=== PATIENT | male | born 1965 | race Caucasian/White ===

== ENCOUNTER 2024-06-04 00:09 | Emergency (ER) | payer MEDICAID, SELFPAY ==
[2024-06-04] VITALS (8 sets, daily range): BP systolic 97–132; BP diastolic 65–89; PULSE 51–71; RESP 10–21; TEMP 36.7–36.9; O2SAT 95–98; BMI 21.1
--- NOTE | 2024-06-04 | ECG_ITS ---
Test Reason : OVERDOSE Blood Pressure : */* mmHG Vent. Rate : 66 BPM Atrial Rate : 66 BPM P-R Int : 166 ms QRS Dur : 104 ms QT Int : 376 ms P-R-T Axes : 68 -45 44 degrees QTcB Int : 394 ms Normal sinus rhythm Incomplete right bundle branch block Left anterior fascicular block Abnormal ECG No previous ECGs available Referred By: Celia Kumar Electronically Signed By: PETER WASHINGTON
--- NOTE | 2024-06-04 00:24 | MHC.EDTECH ---
Patient changed over into hospital green [place] and pants for safety for OD. Security searched items and placed into lock up. belongings list completed
--- NOTE | 2024-06-04 00:25 | MHC.EDTECH ---
[facility]
--- NOTE | 2024-06-04 00:40 | ED_ITS ---
HPI - Overdose General Chief Complaint: Overdose Stated Complaint: OD Time Seen by Provider: 06/04/24 00:22 Source: patient and EMS Mode of arrival: EMS Limitations: no limitations History of Present Illness ED Provider: Dr. Celia Kumar HPI Narrative: Patient comes to the emergency room complaining of accidental overdose. According to EMS, PD found the patient unresponsive on the street, gave him 8 mg of Narcan, patient had to be ventilated initially the patient woke up. Patient admits that he has been using drugs, heroin and wheat. Patient is adamant that he is not suicidal or homicidal, this was an accidental overdose. Related Data Allergies Allergy/AdvReac Type Severity Reaction Status Date / Time No Known Allergies Allergy Verified 06/04/24 00:23 Review of Systems 2 Review of Systems: Constitutional : No Weight loss, No Fever, No Chills, No Night Sweats, No Fatigue, No Malaise ENT/Mouth : No Hearing loss, No Ear Pain, No Nasal Congestion, No Sinus Pain, No Hoarseness, No sore throat, No Rhinorrhea, No Swallowing Difficulty Eyes: No Eye Pain, No Swelling, No Redness, No Foreign Body, No Discharge, No Vision Changes Cardiovascular : No Chest Pain, No SOB, No Dyspnea on Exertion, No Orthopnea, No Edema, No Palpitations Respiratory : No Cough, No Sputum, No Wheezing, No Smoke Exposure, No Dyspnea Gastrointestinal : No Nausea, No Vomiting, No Diarrhea, No Constipation, No abdominal Pain, No Hematochezia, No Melena Genitourinary : no irregular bleeding, No Dysuria, No Urinary Frequency, No Hematuria, No Urinary Incontinence, No Urgency, No Flank Pain, No Urinary Flow Changes, No Hesitancy Musculoskeletal : No joint pain, No Myalgias, No Joint Swelling Skin : No Skin Lesions, No rash Neuro : No Weakness, No Numbness, No Paresthesias, No Loss of Consciousness, No Dizziness, No Headache Psych : No Anxiety/Panic, No Depression, No SI/HI/AH/VH, Admits to polysubstance abuse, accidental overdose Heme/Lymph: No Bruising, No Bleeding,No Lymphadenopathy Endocrine : No Polyuria, No Polydipsia, No Temperature Intolerance PMFSH Past Medical History Medical History Overdose Polysubstance abuse Social History Social History Smoked in Last 30 Days: Yes Use of substances other than those prescribed or required for medical reasons: Yes Substance Use Type: Heroin and Marijuana Advance Directives: No Advance Directives Information Provided: Yes Physical Exam 2 Vital Signs: Vital Signs: Last Vital Signs Temp 98.4 F 06/04/24 05:50 Pulse 51 06/04/24 05:50 Resp 10 L 06/04/24 05:50 BP 97/67 06/04/24 05:50 Pulse Ox 96 06/04/24 05:50 O2 Del Method Room Air 06/04/24 05:50 BMI result Body Mass Index 21.1 Const: Other: Appearance: Alert. Oriented X3. No acute distress. Eyes: Pupils equal, round and reactive to light. ENT: Pharynx normal. Neck: Normal inspection. Neck supple. No lymph nodes noted. No crepitus CVS: Normal heart rate and rhythm. Pulses normal. Normal S1 and S2 Respiratory: No respiratory distress. Breath sounds normal. No Wheezing. No rales Abdomen: Soft and nontender. No rigidity. No distention. Skin: Skin warm and dry. Normal skin color. Normal skin turgor. no swelling or deformities Extremities: No lower extremity edema. No Lacerations. No Rash Neuro: Oriented X 3. No motor deficit. No sensory deficit. Moving all extremities. No slurred speech. CN 2 through 12 grossly intact Psych: calm, cooperative, normal affect Course Course Course Narrative: patient is adamant that he is not suicidal or homicidal. This was an accidental overdose all of patient's labs pending patient decline care/sude eval vitals stable, oxygen saturation 98% on room air Physician observation started at 00:30 Medications Administered Discontinued Medications Generic Name Dose Route Start Last Admin Trade Name Austinq PRN Reason Stop Dose Admin Acetaminophen 975 mg 06/04/24 02:40 06/04/24 02:45 Acetaminophen 325 Mg Tablet PO 06/04/24 02:41 975 mg ONCE ONE Administration Medical Decision Making Medical Decision Making [facility] Narrative: my interpretation of labs: Patient's hematology and chemistry within normal limits. Urine toxicology positive for opiates, fentanyl, cocaine and marijuana patient states that he has no interest in detox or any programs such as Suboxone/ methadone Differential Diagnosis Differential Diagnoses: The differential diagnosis associated with the presentation includes ( polysubstance abuse, accidental overdose, depression, anxiety) Admission/Observation Consideration of admission/observation: Escalation of care including admission/observation considered ( patient is under physician observation, waiting to become more awake) Lab Data 06/04/24 00:45 06/04/24 00:45 Labs: Lab Results 06/04/24 06/04/24 Range/Units 00:45 02:47 WBC 6.1 (4.8-10.8) X10*3/uL RBC 4.25 L (4.60-5.80) X10*6/uL Hgb 13.1 L (14.0-18.0) g/dl Hct 37.5 L (42.0-52.0) % MCV 88.2 (80.0-98.0) fL MCH 30.8 (27.0-33.0) pg MCHC 34.9 (31.0-36.0) g/dl RDW 12.1 (11.0-16.0) % Plt Count 161 (160-400) X10*3/uL MPV 8.2 L (9.4-12.4) fL Immature Gran % (Auto) 0.3 (0.0-0.4) % Neut % (Auto) 56.8 (45-73) % Lymph % (Auto) 27.2 (20-40) % [place] % (Auto) 6.7 (2-11) % Eos % (Auto) 8.5 H (0-4) % Baso % (Auto) 0.5 (0-2) % Lymph # (Auto) 1.7 (1.2-4.9) X10*3/uL [place] # (Auto) 0.4 (0.1-1.2) X10*3/uL Eos # (Auto) 0.5 H (0.0-0.4) X10*3/uL Baso # (Auto) 0.0 (0.0-0.2) X10*3/uL Abs Immat Gran (auto) 0.02 (0.00-0.03) X10*3/uL Absolute Neuts (auto) 3.5 (2.0-8.3) x10*3/uL Absolute Nucleated RBC 0.000 (0.0-0.012) X10*3/uL Nucleated RBC % (auto) 0.0 (0.0-0.2) /100WBC Sodium 140 (135-145) mmol/L Potassium 3.9 (3.3-5.1) mmol/L Chloride 104 (96-108) mmol/L Carbon Dioxide 28 (22-29) mmol/L Anion Gap 12 (12-20) BUN 19 H (9-16) mg/dL Creatinine 0.91 (0.5-1.4) mg/dL Estim Creat Clear Calc 75.7 Estimated GFR > 60 Random Glucose 115 (60-115) mg/dL Calcium 9.2 (8.4-10.2) mg/dL Total Bilirubin 0.5 (0.0-1.0) mg/dL AST 33 (5-37) U/L ALT 20 (0-40) U/L Alkaline Phosphatase 61 (39-117) U/L Total Protein 7.0 (6.5-8.0) g/dL Albumin 4.0 (3.5-5.0) g/dL Urine Opiates Screen POSITIVE H (Not Detect) Ur Buprenorphine Scrn Not Detected (Not Detect) ng/mL Ur Oxycodone Screen Not Detected (Not Detect) ng/mL Urine Methadone Screen Not Detected (Not Detect) ng/mL Urine Fentanyl Screen POSITIVE H (Not Detect) Ur Barbiturates Screen Not Detected (Not Detect) Ur Phencyclidine Scrn Not Detected (Not Detect) Ur Amphetamines Screen Not Detected (Not Detect) U Benzodiazepines Scrn Not Detected (Not Detect) Urine Cocaine Screen POSITIVE H (Not Detect) U Marijuana (THC) Screen POSITIVE H (Not Detect) Ethyl Alcohol < 10 mg/dL Critical Care Time Critical Care Time Critical Care Time: Yes Total Critical Care Time: 45 Attestation: I have personally provided critical care time. Time includes review of lab data, radiology results, discussion with consultants, and monitoring for potential decompensation. Intervention performed as documented. Discharge Plan Discharge Clinical Impression: Drug overdose Patient Disposition: Home, Self-Care Instructions: Adult Overdose (ED) Additional Instructions: Overdose You were seen in our Emergency Department for an overdose today. You received narcan in order to reverse the effects of overdose. Narcan only lasts about 45 min to 1 hour in the system. You may have been given narcan to take home with you today, please keep it near you if you are going to use again, so others can use it if needed.? The number one risk for fatal overdose is using alone? [facility] [employer] is a / hotline where you can be on the phone with someone while you use, and they can call for help if they suspect an overdose: [phone] Things to look out for when you leave include severe vomiting or diarrhea, headaches, muscle cramps, fever, coughing, chest pain, or if you feel so short of breath you cannot walk to the bathroom. Please seek care and return any time for worsening symptoms.? You may have been provided with safer injection?items, please take time to take care of YOU and your health. Use new supplies whenever possible to lessen the chances of infections and other illnesses.? If you need more supplies, please go [facility],? [address] [place] [address] OR you can call or text to coordinate delivery of safer supplies. If you decide you want to stop or cut down on how much you?re using, please call the numbers on the list provided to you or you can come to our outpatient Addiction Treatment office [facility] [place] (M-F 9am-5p) [address] [place] [address], [address] [place], [place]. [phone] Print Language: Kazakh
[2024-06-04 00:49] LABS: MANUAL DIFF FLAG NO
[2024-06-04 00:50] LABS: Basophils Percent Auto 0.5 % (0-2); Eosinophils Absolute Auto 0.5 X10*3/uL (0.0-0.4); Eosinophils Percent Auto 8.5 % (0-4); Hematocrit 37.5 % (42.0-52.0); Hemoglobin 13.1 g/dl (14.0-18.0); Imm Gran Abs Auto 0.02 X10*3/uL (0.00-0.03); Imm Gran Pct Auto 0.3 % (0.0-0.4); Lymphocytes Absolute Auto 1.7 X10*3/uL (1.2-4.9); Lymphocytes Percent Auto 27.2 % (20-40); Mean Corpuscular HGB Conc 34.9 g/dl (31.0-36.0); Mean Corpuscular Hemoglobin 30.8 pg (27.0-33.0); Mean Corpuscular Volume 88.2 fL (80.0-98.0); Mean Platelet Volume 8.2 fL (9.4-12.4); Monocytes Absolute Auto 0.4 X10*3/uL (0.1-1.2); Monocytes Percent Auto 6.7 % (2-11); Neutrophils Absolute Auto 3.5 x10*3/uL (2.0-8.3); Neutrophils Percent Auto 56.8 % (45-73); Platelet Count 161 X10*3/uL (160-400); Red Blood Count 4.25 X10*6/uL (4.60-5.80); Red Cell Distribution Width 12.1 % (11.0-16.0); White Blood Count 6.1 X10*3/uL (4.8-10.8)
[2024-06-04 01:13] LABS: Alkaline Phosphatase 61 U/L (39-117)
[2024-06-04 01:14] LABS: Alanine Aminotransferase 20 U/L (0-40); Anion Gap 12 (12-20); Aspartate Amino Transferase 33 U/L (5-37); Bilirubin Total 0.5 mg/dL (0.0-1.0); Blood Urea Nitrogen 19 mg/dL (9-16); Calcium 9.2 mg/dL (8.4-10.2); Carbon Dioxide 28 mmol/L (22-29); Chloride 104 mmol/L (96-108); Creatinine Clr Calc Pharmacy 75.7; Estimated Glomerular Filt Rate > 60; Ethanol < 10 mg/dL; Glucose Random 115 mg/dL (60-115); Potassium 3.9 mmol/L (3.3-5.1); Sodium 140 mmol/L (135-145)
[2024-06-04] MEDS: Acetaminophen 325 MG TABLET 975 MG PO (02:45)
--- OUTSIDE RECORDS SUMMARY | 2024-06-04 02:46 | XMS_ITS | Clinical Summary ---
Author Organization [facility] Address [address] [place] [address] Care Team Providers Care Sales/Marketing Name Role Phone Tom Gomez Primary Care Provider [phone] Allergies No known active allergies Medications Medication Sig Dispensed Refills Start Date End Date Status terbinafine (LamISIL) 1 % cream Apply topically 2 (two) times a day. Apply twice a day for one to four weeks 30 g 1 09/23/2018 Active naproxen (NAPROSYN) 500 MG tablet Take 1 tablet (500 mg total) by mouth 2 (two) times a day as needed for mild pain (pain). Take with food 20 tablet 11/12/2019 Active methocarbamol (ROBAXIN) 500 MG tablet Take 2 tablets (1,000 mg total) by mouth 4 times daily (every 6 hours) as needed for muscle spasms. 20 tablet 11/12/2019 Active Social History Tobacco Use Types Packs/Day Years Used Date Smoking Tobacco: Every Day Smokeless Tobacco: Never Alcohol Use Standard Drinks/Week Comments No 0 (1 standard drink = 0.6 oz pur e alcohol) Sex and Gender Information Value Date Recorded Sex Assigned at Not on file Gender Identity Not on file Sexual Orientation Not on file Last Filed Vital Signs Vital Sign Reading Time Taken Comments Blood Pressure 110/72 05/24/2021 8:11 PM EST Pulse 70 05/24/2021 8:11 PM EST Temperature 36.2 ??C (97.1 ??F) 05/24/2021 8:11 PM ES T Respiratory Rate 16 05/24/2021 8:11 PM EST Oxygen Saturation 96% 05/24/2021 8:11 PM EST Inhaled Oxygen Concentration - - Weight - - Height - - Body Mass Index - - Plan of Treatment Health Maintenance Due Date Last Done Comments Hepatitis C Virus Screening 1964 HIV Screening 1977 DTaP/Tdap/Td Vaccines (1 - Tdap) 10/06/1983 Hepatitis B Vaccines (1 of 3 - 19+ 3-dose series) 10/06/1983 Colonoscopy 2009 Pneumococcal Vaccines 50+ (1 of 1 - PCV) 2014 Zoster (Shingles) Vaccine (1 of 2) 2014 Influenza Vaccine 10/23/2023 COVID-19 Vaccine (3 - season) 2023, 08/29/2020 Care Teams Sales/Marketing Relationship Specialty Start [place] [address] PCP - General Adult Health - PA/APNP/BUDGET COUNSELOR/MECHANICAL MANAGER 05/10/20
--- OUTSIDE RECORDS SUMMARY | 2024-06-04 02:46 | XMS_ITS | Clinical Summary ---
Author Organization [employer] Address [address] [facility] [address] [place] [address] Care Team Providers Care Recreation Facilities Supervisor Name Role Phone Unavailable Primary Care Provider Unavailabl e Encounters Date Type Department Care Team Description 04/21/[address] [address] Suraj Miles MD New pt appt 04/20/[address] [address] Suraj Miles MD telephone call from Last 3 Months Social History Tobacco Use Types Packs/Day Years Used Date Smoking Tobacco: Never Assessed Sex and Gender Information Value Date Recorded Sex Assigned at Male 01/21/2022 10:20 AM EDT Legal Sex Male 10:20 AM EDT Gender Identity Male 09/16/2022 11:11 AM EDT Sexual Orientation Straight 01/21/2022 10 :20 AM EDT Plan of Treatment Upcoming Encounters Date Type Department Care Team (Late st Contact Info) Description 07/05/2024 2:00 PM EDT Office Visit [address] [address] Name, MD Pedro [address] [place] [id number] Health Maintenance Due Date Last Done Comments CT Colonography 1964 Colonoscopy 1964 Colorectal Cancer Screening 1964 Depression Screening 1964 FIT DNA/Cologuard 1964 FIT 1964 FOBT 1964 HIV Screening 1964 Lipid Panel 1964 SDOH Screening 1964 Sigmoidoscopy 1964 Alcohol/Substance Use Screening 1976 Tobacco Screening 1976 Hepatitis C Screening 1982 DTaP/Tdap/Td Vaccines (1 - Tdap) 10/06/1983 Hepatitis B Vaccines (1 of 3 - 19+ 3-dose series) 10/06/1983 Pneumococcal Vaccine: 50+ Ye ars (1 of 1 - PCV) 2014 Zoster Vaccines (1 of 2) 2014 COVID-19 Vaccine ( - 2023-2 5 season) 2023 Influenza Vaccine (#1) 2023 RSV Patients and Pa tients Aged 60 years or older (1 - 1-dose 75+ series) 10/06/2039 HIB Vaccines Aged Out No longer eligi ble based on patient's age to complete this topic HPV Vaccines Aged Out No longer eligi ble based on patient's age to complete this topic Hepatitis A Vaccines Aged Out No long er eligible based on patient's age to complete this topic IPV Vaccines Aged Out No longer eligi ble based on patient's age to complete this topic Meningococcal Vaccine Aged Out No mya montrell eligible based on patient's age to complete this topic RSV under 20 months Aged Out No longe r eligible based on patient's age to complete this topic Rotavirus Vaccines Aged Out No longer eligible based on patient's age to complete this topic Insurance [facility] C3
[2024-06-04 03:09] LABS: Amphetamine Screen Urine Not Detected (Not Detect); Barbiturates, Urine Not Detected (Not Detect); Benzodiazepines Screen Urine Not Detected (Not Detect); Buprenorphine Scr Not Detected (Not Detect); Cannabinoid Screen Urine POSITIVE (Not Detect); Cocaine Screen Urine POSITIVE (Not Detect); Fentanyl, urine POSITIVE (Not Detect); Methadone Screen, Urine Not Detected (Not Detect); Opiate Screen Urine POSITIVE (Not Detect); Oxycodone Screen Urine Not Detected (Not Detect); Phencyclidine Screen Urine Not Detected (Not Detect)
--- NOTE | 2024-06-04 07:00 | PC.NURSE ---
Report taken from Talia Mitchell RN
--- NOTE | 2024-06-04 08:28 | PC.NURSE ---
Pt. woke up, came out of room and started yelling that he needs to leave immediately for a job interview. Keyur Ojeda MD notified to d/c pt.
--- NOTE | 2024-06-04 08:28 | PC.NURSE ---
[facility]
--- NOTE | 2024-06-04 08:36 | PC.NURSE ---
Pt. refusing d/c vitals
== END 2024-06-04 08:37 | disposition home or self-care (01) ==
PROVIDERS: Emergency Provider Emergency Medicine
DX: T40.2X1A Poisoning by other opioids, accidental (unintentional), initial encounter (principal); R40.4 Transient alteration of awareness; Y92.9 Unspecified place or not applicable; F14.90 Cocaine use, unspecified, uncomplicated; F12.90 Cannabis use, unspecified, uncomplicated; I45.10 Unspecified right bundle-branch block; Z51.81 Encounter for therapeutic drug level monitoring; Z79.899 Other long term (current) drug therapy
CPT/HCPCS: 36415; 80053; 80307; 85025; 93005; 99285

== ENCOUNTER → 2024-06-04 00:35 | Outpatient (BNV) | payer MEDICAID, SELFPAY | PROVIDERS: Emergency Provider Emergency Medicine; Visit Provider Internal Medicine | DX: I45.2 Bifascicular block (principal) | CPT/HCPCS: 93010 ==

== ENCOUNTER 2024-07-06 11:30 | Outpatient (REF) | payer MEDICAID, SELFPAY ==
[2024-07-06 13:27] LABS: MANUAL DIFF FLAG NO
[2024-07-06 13:40] LABS: Basophils Percent Auto 0.3 % (0-2); Eosinophils Absolute Auto 0.3 X10*3/uL (0.0-0.4); Eosinophils Percent Auto 5.7 % (0-4); Hematocrit 40.5 % (42.0-52.0); Hemoglobin 14.2 g/dl (14.0-18.0); Imm Gran Abs Auto 0.02 X10*3/uL (0.00-0.03); Imm Gran Pct Auto 0.3 % (0.0-0.4); Lymphocytes Absolute Auto 1.2 X10*3/uL (1.2-4.9); Mean Corpuscular HGB Conc 35.1 g/dl (31.0-36.0); Mean Corpuscular Hemoglobin 30.9 pg (27.0-33.0); Mean Platelet Volume 9.2 fL (9.4-12.4); Monocytes Absolute Auto 0.4 X10*3/uL (0.1-1.2); Monocytes Percent Auto 7.5 % (2-11); Neutrophils Absolute Auto 3.8 x10*3/uL (2.0-8.3); Neutrophils Percent Auto 65.2 % (45-73); Platelet Count 181 X10*3/uL (160-400); Red Cell Distribution Width 12.1 % (11.0-16.0); White Blood Count 5.8 X10*3/uL (4.8-10.8)
--- OUTSIDE RECORDS SUMMARY | 2024-07-06 14:18 | XMS_ITS | Clinical Summary ---
Author Organization [facility] Address [address] [place] [address] Care Team Providers Care Entertainment Manager Name Role Phone Tom Gomez Primary Care Provider [phone] Allergies No known active allergies Medications Medication [...] (3 - season) 2023, 08/29/2020 Care Teams Entertainment Manager Relationship Specialty Start Date [place] [address] PCP - General Adult Health - PA/APNP/STEEL POST INSTALLER/NURSES EDUCATOR 05/10/20
[2024-07-06 14:25] LABS: Alanine Aminotransferase 30 U/L (0-40); Albumin Level 4.2 g/dL (3.5-5.0); Anion Gap 8 (12-20); Aspartate Amino Transferase 30 U/L (5-37); Bilirubin Total 0.4 mg/dL (0.0-1.0); Blood Urea Nitrogen 13 mg/dL (9-16); Calcium 9.4 mg/dL (8.4-10.2); Carbon Dioxide 25 mmol/L (22-29); Chloride 109 mmol/L (96-108); Estimated Glomerular Filt Rate > 60; Glucose Random 102 mg/dL (60-115); Potassium 4.1 mmol/L (3.3-5.1); Sodium 138 mmol/L (135-145)
[2024-07-06 14:48] LABS: TSH reflex Free T4 1.73 uIU/mL (0.32-4.0)
[2024-07-06 15:25] LABS: CT PCR NOT DETECTED (Not Detect.); NG PCR NOT DETECTED (Not Detect.)
[2024-07-06 17:32] LABS: Alkaline Phosphatase 67 U/L (39-117)
[2024-07-07 08:13] LABS: HBS Num1 10.85 mIU/mL (0-7.99); HBsAGNum1 0.44 S/CO (0.00-0.99); HIV AB/AG Nonreactive (Nonreactive); HIV Num 1 0.06 S/CO (0.00-0.99); Hepatitis B Surface Antigen Negative (Negative)
[2024-07-07 09:32] LABS: HBS Num2 10.49 mIU/mL (0-7.99); HBS Num3 10.35 mIU/mL (0-7.99); ~Hepatitis B Surface Antibody GRAYZONE (Nonreactive)
[2024-07-07 09:54] LABS: RPR Rapid Plasma Reagin NON-REACTIVE (NON-REACTIVE)
[2024-07-08 08:54] LABS: Hepatitis A Antibody IgG REACTIVE (Nonreactive); ~Hepatitis A Antibody IgG 12.31 S/CO (0.00-0.99)
[2024-07-08 15:48] LABS: HCV Log PCR <1.18 NOT DETECTED Log IU/mL (NOT DETECTED); HepC Viral Load <15 NOT DETECTED IU/mL (NOT DETECTED)
== END 2024-07-06 11:31 | disposition home or self-care (01) ==
LOC: HO.HHCL 11:30
PROVIDERS: Visit Provider Internal Medicine Geriatric Medicine
DX: F19.10 Other psychoactive substance abuse, uncomplicated (principal); F41.8 Other specified anxiety disorders
CPT/HCPCS: 80053; 84443; 85025; 86592; 86706; 86708; 87340; 87389; 87491; 87522; 87591

== ENCOUNTER 2024-09-03 13:14 | Emergency (ER) | payer MEDICAID, SELFPAY ==
[2024-09-03 13:18] VITALS: BP 122/74; PULSE 97; O2SAT 96
[2024-09-03 13:25] VITALS: BP 93/57; PULSE 69; RESP 16; TEMP 36.6; O2SAT 96; BMI 21.1
--- NOTE | 2024-09-03 13:42 | ED_ITS ---
HPI - Overdose General Chief Complaint: Overdose Stated Complaint: PER EMS OD, NARCAN GIVEN Time Seen by Provider: 09/03/24 13:40 Source: patient and EMS Mode of arrival: EMS Limitations: no limitations History of Present Illness ED Provider: Juancarlos Greenfield PA-C HPI Narrative: 58-year-old male presents to the ER via EMS for evaluation of an accidental drug overdose. He reports using 1 bag of intranasal heroin earlier today. He became unconscious and was given Narcan by a bystander. He denies any falls or injuries. He states he does not use heroin daily, that he is not addicted to it, and that ?his body does not crave it. He states he has the paperwork at home for detox but does not think he needs it. He denies any shortness of breath or chest pain. He states he feels fine and wants to go to work. complaint: accidental overdose Onset (ago): minute(s) Context: Accidental Overdose: wanted to get high Treatments Prior to Arrival: narcan Related Data Allergies Allergy/AdvReac Type Severity Reaction Status Date / Time No Known Allergies Allergy Verified 09/03/24 13:29 Review of Systems Review of Systems: Yes all other systems are reviewed and are negative PMFSH Past Medical History Medical History Overdose Polysubstance abuse Social History Social History Substance Use Type: Heroin and Marijuana Advance Directives: No Advance Directives Information Provided: Yes Physical Exam Vital Signs: Vital Signs: Last Vital Signs Temp 97.9 F 09/03/24 14:23 Pulse 75 09/03/24 14:23 Resp 16 09/03/24 14:23 BP 100/61 09/03/24 14:23 Pulse Ox 97 09/03/24 14:23 O2 Del Method Room Air 09/03/24 14:23 BMI result Body Mass Index 21.1 Appearance: Alert. Oriented X3. No acute distress. Head: normocephalic, atraumatic. Eyes: Pupils equal, round and reactive to light. ENT: Normal external inspection Neck: Normal inspection. CVS: Normal heart rate and rhythm. Pulses normal. Respiratory: No respiratory distress. Breath sounds normal. Skin: Skin warm and dry. Normal skin color. Normal skin turgor. No rashes. Extremities: No lower extremity edema. No joint swelling. No track vazquez on the upper extremities Neuro/psych: Oriented X 3. No motor deficit. No sensory deficit. CN II-XII intact. Normal speech and cognition. Steady gait and appropriate Medications Administered Discontinued Medications Generic Name Dose Route Start Last Admin Trade Name Millicent PRN Reason Stop Dose Admin Naloxone HCl 8 mg 09/03/24 13:54 09/03/24 14:16 Naloxone Hcl Nasal Take Home 4 Mg [place] NOSTRILALT 09/03/24 13:55 8 mg ONCE ONE Administration Medical Decision Making Medical Decision Making MDM Narrative: 58-year-old male with history of intermittent drug use presenting to the ER after he was using intranasal heroin outside, accidentally overdose and was given intranasal Narcan by a bystander. He reports 1 history of overdose in the past. He does not use daily. He denies dependence. On arrival to the ER he is calm, cooperative, no physical complaints. He is ambulating around the ER asking if he can leave so that he can go to work. He was monitored in the ER for almost 1 hour. He was counseled that he should stay longer for ongoing monitoring but he declined. He was given Narcan to go. He declined need for detox. Comfortable discharge home Differential Diagnosis Differential Diagnoses: The differential diagnosis associated with the presentation includes Intentional overdose, accidental overdose, polypharmacy Independent Historian Clinical information obtained from an independent historian. History obtained from or confirmed by: EMS External Record Review External record reviewed: Prior outpatient labs Prescription Management I considered prescription management with: Other (narcan) Chronic Conditions Patient?s care impacted by: Other (hx opiate use disorder) Critical Care Time Critical Care Time Critical Care Time: No Discharge Plan Discharge Clinical Impression: Drug overdose Qualifiers: Encounter type: initial encounter Injury intent: accidental or unintentional Qualified Code(s): T50.901A - Poisoning by unspecified drugs, medicaments and biological substances, accidental (unintentional), initial encounter Patient Disposition: Home, Self-Care Instructions: Adult Overdose (ED) Additional Instructions: Overdose You were seen in our Emergency Department for an overdose today. You received narcan in order to reverse the effects of overdose. Narcan only lasts about 45 min to 1 hour in the system. You may have been given narcan to take home with you today, please keep it near you if you are going to use again, so others can use it if needed.? The number one risk for fatal overdose is using alone? [facility] is a 14/10 hotline where you can be on the phone with someone while you use, and they can call for help if they suspect an overdose: [phone] Things to look out for when you leave include severe vomiting or diarrhea, headaches, muscle cramps, fever, coughing, chest pain, or if you feel so short of breath you cannot walk to the bathroom. Please seek care and return any time for worsening symptoms.? You may have been provided with safer injection?items, please take time to take care of YOU and your health. Use new supplies whenever possible to lessen the chances of infections and other illnesses.? If you need more supplies, please go [facility],? [address] [place] [address] [place] you can call or text to coordinate delivery of safer supplies. If you decide you want to stop or cut down on how much you?re using, please call the numbers on the list provided to you or you can come to our outpatient Addiction Treatment office [facility] (M-F 9am-5p) [address] [place] [address], [address] [place], [place]. [phone] Referrals: [facility] [Primary Care Provider] - Interventions: ED Discharge Assessment Last Done: 09/03/24 14:23 Discharge Date/Time: 09/03/24 14:25 Print Language: Tristanian
--- OUTSIDE RECORDS SUMMARY | 2024-09-03 13:52 | XMS_ITS | Clinical Summary ---
Author Organization [employer] Address [address] [facility] [address] [place] [address] Care Team Providers Care Blow Molding Machine Tender Name Role Phone Name, Pedro NORRIS Primary Care Provider [phone] Allergies No known active allergies Medications * This document contains information received from the source organization and may not represent a complete record from that organization. naloxone (Narcan) 4 mg/0.1 mL nasal spray Administer 1 spray (4 mg) into affected nostril(s) if needed for opioid reversal. May repeat every 2-3 minutes if needed, alternating nostrils, until medical assistance becomes available. 2 each 5 07/06/19 Active Active Problems Problem Noted Date Diagnosed Date Moderate major depression 07/16/2024 Polysubstance abuse 07/16/2024 Encounters * This document contains information received from the source organization and may not represent a complete record from that organization. Date Type Department Care Team Description 08/27/2024 Telephone [facility] [address] [place] [phone] Beverly Masters MA october recalls 07/28/2024 9:00 AM EDT Office Visit [facility] [address] [place] [phone] Ruel Esquivel MD Cocaine use disorder (CMS/HCC) (Primary Dx) 07/28/2024 Travel 07/27/2024 Patient Outreach [facility] [address] [place] [address] José Miguel Jules [facility] Supports 07/26/2024 Patient Outreach [facility] [address] [place] [address] [phone] José Miguel Jules [facility] 07/22/2024 Patient Outreach [facility] [address] [place] [address] José Miguel Jules [facility] Supports 07/20/2024 Patient Outreach [facility] [address] [place] [address] Umair Nelson Recovery Supports 07/19/2024 Patient Outreach [address] [address] Umair Nelson Recovery Supports 07/16/2024 Telephone [facility] [address] [place] [address] Pedro Proctor MD Results 07/08/2024 Telephone [facility] [address] [place] [phone] Simonnaveen Polly, OD 07/05/2024 2:00 PM EDT Office Visit [address] [address] Pedro Proctor MD Polysubstance abuse (CMS/HCC) (Primary Dx); Tobacco use disorder; Depression with anxiety; Screening examination for STI; Screening for colon cancer; Blurred vision, bilateral; Housing instability 07/05/2024 Patient Outreach [address] [address] Pedro Proctor MD Care Coordination (CHW outreach for SDOH housing search-referral completed ) 07/05/2024 Travel 07/01/[address] [address] Ayush Hood MA chartprep 06/28/2024 Patient Outreach [facility] [address] [place] [address] Pedro Proctor MD 06/28/2024 Patient Outreach [facility] [address] [place], [place] [phone] Pedro Proctor MD Pre-visit Planning (SDOH negative, Tobacco screening negative) 06/23/2024 Population Health Risk Score [facility] () Department [address] [place] [phone] Provider, Population Health Generic from Last 3 Months Immunizations Immunization Administration Dates Next Due Tdap 07/05/2024 Family History Medical History Relation Name Comments Diabetes Mother Relation Name Status Comments Mother Social History Tobacco Use Types Packs/Day Years Used Date Smoking Tobacco: Every Day Cigarettes Smokeless Tobacco: Never Alcohol Use Standard Drinks/Week Comments Defer 0 (1 standard drink = 0.6 oz pur e alcohol) occionally Alcohol Answer Date Recorded How often do you have a drink containing alcohol ? 3 07/16/2024 How many drinks containing a lcohol do you have on a typical day when you are drinking? 1 07/16/2024 How often do you have six or more drinks on one occasion? 1 07/16/2024 Depression Answer Date Recorded Patient Health Questionnaire-9 Score 13 07/05/2024 Patient Health Questionnaire-9 Score 13 07/05/2024 Last PHQ-9: Questionnaire Data Not on file 0 07/05/2024 Housing Stability Answer Date Recorded What is your housing situation today? I do not have housing (Staying with others, in a hotel, in a fci, living outside on the street, on a beach, in a car, or in a park 07/05/[address] you li ve. Do you have problems with any of the following? None of the above 07/05/2024 Food Insecurity Answer Date Recorded Within the past 12 months, y ou worried that your food would run out before you got money to buy more: Never True 06/28/2024 Within the past 12 months,th e food you bought just didn't last and you didn't have enough money to get more: Never True 09/2024 Transportation Answer Date Recorded In the past 12 months, has l ack of transportation kept you from medical appts, meetings, work or from getting things needed for daily living? No 06/28/2024 Utilities Answer Date Recorded In the past 12 months, has t he electric, gas, oil or water company threatened to shut off services in your home? No 06/28/2024 Depression Answer Date Recorded Patient Health Questionnaire-2 Score 4 07/05/2024 Internet Access Answer Date Recorded Internet Access Q1 Yes 06/28/2024 Internet Access Q2 Not on file 06/28/2024 Sex and Gender Information Value Date Recorded Sex Assigned at Male 01/21/2022 10:20 AM EDT Legal Sex Male 10:20 AM EDT Gender Identity Male 09/16/2022 11:11 AM EDT Sexual Orientation Straight 01/21/2022 10 :20 AM EDT Last Filed Vital Signs Vital Sign Reading Time Taken Comments Blood Pressure 119/82 07/05/2024 2:22 PM EDT Pulse 69 07/05/2024 2:22 PM EDT Temperature 37.4 ??C (99.4 ??F) 07/05/2024 2:22 PM ED T Respiratory Rate 18 07/05/2024 2:22 PM EDT Oxygen Saturation 98% 07/05/2024 2:22 PM EDT Inhaled Oxygen Concentration - - Weight 63.4 kg (139 lb 12.8 oz) 07/05/2024 2:22 PM EDT Height 172.7 cm (5' 8 ) 07/05/2024 2:22 PM EDT Body Mass Index 21.26 07/05/2024 2:22 PM EDT Plan of Treatment Upcoming Encounters Date Type Department Care Team (Late st Contact Info) Description 10/25/2024 1:00 PM EDT Office Visit [facility] [address] [place] [address] Tarka, Polly, OD [address] [place] [address] 11/30/2024 1:00 PM EDT Office Visit [facility] [address] [place] [address] Name, MD Pedro [address] [place] [address] Health Maintenance Due Date Last Done Comments CT Colonography 1964 Colonoscopy 1964 Colorectal Cancer Screening 1964 FIT DNA/Cologuard 1964 FIT 1964 FOBT 1964 Lipid Panel 1964 Sigmoidoscopy 1964 Disability Screening 1964 Hepatitis B Vaccines (1 of 3 - 19+ 3-dose series) 10/06/1983 07/10/2010, 03/15/2010, 06/05/2009 Pneumococcal Vaccine: 50+ Years (2 of 2 - PCV) 12/25/2011 12/24/2010 Zoster Vaccines (1 of 2) 2014 COVID-19 Vaccine ( season) 2023 Influenza Vaccine (Season Ended) 2024 04/28/2018, 02/04/2017, 03/04/2016, Additional history exists Depression Monitoring 01/04/2025 07/05/2024, 025 SDOH Screening 07/05/2025 07/05/2024 Tobacco Screening 07/05/2025 07/05/2024 Alcohol/Substance Use Screening 07/16/2025 07/16/2024 DTaP/Tdap/Td Vaccines (3 - Td or Tdap) 07/05/2034 07/05/2024, 07/10/2010 RSV Patients and Patients Aged 60 years or older (1 - 1-dose 75+ series) 10/06/2039 HIV Screening Completed 07/06/2024 Hepatitis C Screening Completed 07/06/2024 HIB Vaccines Aged Out No longer eligi [...] patient's age to complete this topic Meningococcal B Vaccine Aged Out No l onger eligible based on patient's age to complete this topic Meningococcal Vaccine Aged Out No mya montrell eligible based on patient's age to complete this topic RSV under 20 months Aged Out No longe r eligible based on patient's age to complete this topic Rotavirus Vaccines Aged Out No longer eligible based on patient's age to complete this topic Procedures Procedure Name Priority Date/Time Associated Diagnosis Comments RPR (MONITOR) W/REFL TITER Routine 07/06/2024 11:33 AM EDT Polysubstance abuse (CMS/HCC) HEPATITIS A ANTIBODY, TOTAL Routine 07/06/2024 11:33 AM EDT Polysubstance abuse (CMS/HCC) HEPATITIS B SURFACE ANTIBODY, QUALITATIVE Routine 07/06/2024 11:33 AM EDT Polysubstance abuse (CMS/HCC) HEPATITIS B SURFACE ANTIGEN, EIA Routine 07/06/2024 11:33 AM EDT Polysubstance abuse (CMS/HCC) HEPATITIS C VIRAL RNA, QUANTITATIVE, REAL-TIME PCR Routine 07/06/2024 11:33 AM EDT Polysubstance abuse (CMS/HCC) HIV 1/2 ANTIGEN/ANTIBODY, FOURTH GENERATION W/RFL Routine 07/06/2024 11:33 AM EDT Polysubstance abuse (CMS/HCC) TSH W/REFLEX TO FT4 Routine 07/06/2024 1 1:33 AM EDT Depression with anxiety COMPREHENSIVE METABOLIC PANEL Routine 07/06/2024 11:33 AM EDT Polysubstance abuse (CMS/HCC) CBC WITH AUTO DIFFERENTIAL Routine 07/06/2024 11:33 AM EDT Polysubstance abuse (CMS/HCC) CHLAMYDIA/N. GONORRHOEAE RNA, TMA, UROGENITAL Routine 07/06/2024 11:33 AM EDT Polysubstance abuse (CMS/HCC) from Last 3 Months Results * TSH W/Reflex to FT4 (07/06/2024 11:33 AM EDT) TSH reflex Free T4 1.73 0.32 - 4.0 uIU/mL [facility] Blood Venous blood specimen / Unknown 07/06/2024 11:33 AM EDT 07/06/2024 1:20 PM EDT us Pedro Proctor MD LAB BLOOD ORDERABLES Final Resul t [facility] [address] [place] [phone] [phone] * Hepatitis C Viral RNA, Quantitative, Real-Time PCR (07/06/2024 11:33 AM EDT) [facility] Hepatitis C Viral Load <15 NOT DETECTED NOT DETECTED IU/mL [facility] HCV Log PCR <1.18 NOT DETECTED NOT DETECTED Log IU/mL [facility] Comment:For additional infor richard, please refer [email or web address]/[email or web address](This link is being provided for informational/educational purposes only.)THIS TEST WAS PERFORMED AT:[facility] [place] [phone] WAHL MD Blood Venous blood specimen / Unknown 07/06/2024 11:33 AM EDT 07/06/2024 1:20 PM EDT us Pedro Name LAB BLOOD ORDERABLES Final Resul t [facility] [address] [place] [phone] * (ABNORMAL) CBC auto differential (07/06/2024 11:33 AM EDT) [facility] White Blood Count 5.8 4.8 - 10.8 X10*3/uL [facility] Red Blood Count 4.60 4.60 - 5.80 X10*6/uL [facility] Hemoglobin 14.2 14.0 - 18.0 g/dl [facility] Hematocrit 40.5(L) 42.0 - 52.0 % [facility] Mean Corpuscular Volume 88.0 80.0 - 98.0 fL [facility] Mean Corpuscular Hemoglobin 30.9 27.0 - 33.0 pg [facility] Mean Corpuscular HGB Conc 35.1 31.0 - 36.0 g/dl [facility] Red Cell Distribution Width 12.1 11.0 - 16.0 % [facility] Platelet Count 181 160 - 400 X10*3/uL [facility] Mean Platelet Volume 9.2(L) 9.4 - 12.4 fL [facility] Neutrophils Percent Auto 65.2 45 - 73 % [facility] Imm Gran Pct Auto 0.3 0.0 - 0.4 % [facility] Lymphocytes Percent Auto 21.0 20 - 40 % [facility] Monocytes Percent Auto 7.5 2 - 11 % [facility] Eosinophils Percent Auto 5.7(H) 0 - 4 % [facility] Basophils Percent Auto 0.3 0 - 2 % [facility] NRBC Pct Auto 0.0 0.0 - 0.2 /100WBC [facility] Neutrophils Absolute Auto 3.8 2.0 - 8.3 x10*3/uL [facility] Imm Gran Abs Auto 0.02 0.00 - 0.03 X10*3/uL [facility] Lymphocytes Absolute Auto 1.2 1.2 - 4.9 X10*3/uL [facility] Monocytes Absolute Auto 0.4 0.1 - 1.2 X10*3/uL [facility] Eosinophils Absolute Auto 0.3 0.0 - 0.4 X10*3/uL [facility] Basophils Absolute Auto 0.0 0.0 - 0.2 X10*3/uL [facility] NRBC Abs Auto 0.000 0.0 - 0.012 X10*3/uL [facility] Blood Venous blood specimen / Unknown 07/06/2024 11:33 AM EDT 07/06/2024 1:20 PM EDT us Pedro Name LAB BLOOD ORDERABLES Final Resul t [facility] [address] [place] [phone] * Hepatitis A Antibody, Total (07/06/2024 11:33 AM EDT) Hepatitis A Antibody IgG REACTIVE Nonreactive [facility] Comment:The presence of IgG anti-HAV implies past HAV infection(recent or distant) or vaccination against HAV. Blood Venous blood specimen / Unknown 07/06/2024 11:33 AM EDT 07/06/2024 1:20 PM EDT us Pedro Proctor MD LAB BLOOD ORDERABLES Final Resul t [facility] [address] [place] [phone] * Chlamydia/N. Gonorrhoeae RNA, TMA, Urogenitial (07/06/2024 11:33 AM EDT) CT PCR NOT DETECTED Not Detect. [facility] Comment:A not detected test result does not exclude the possibilityof infection because test results can be affected byimproper specimen collection, concurrent antibiotic therapy,or the number of organisms in the specimen which may bebelow the sensitivity of the test. As with many diagnostictests, results from the Xpert CT/NG assay should beinterpreted in conjunction with other laboratory andclinical data available to the clinician.Xpert CT/NG performance has not been evaluated in patientsless than 14 years of age. The assay should not be used forthe evaluationof suspected sexual abuse or for other medico-legalindications. Additional testing is recommended in anycircumstance when false positive or false negative resultscould lead to adverse medical, social or psychologicalconsequences. NG PCR NOT DETECTED Not Detect. [facility] Comment:A not detected test result does not exclude the possibilityof infection because test results can be affected byimproper specimen collection, concurrent antibiotic therapy,or the number of organisms in the specimen which may bebelow the sensitivity of the test. As with many diagnostictests, results from the Xpert CT/NG assay should beinterpreted in conjunction with other laboratory andclinical data available to the clinician.Xpert CT/NG performance has not been evaluated in patientsless than 14 years of age. The assay should not be used forthe evaluationof suspected sexual abuse or for other medico-legalindications. Additional testing is recommended in anycircumstance when false positive or false negative resultscould lead to adverse medical, social or psychologicalconsequences. Urine (Urine, Random) 07/06/2024 11:33 AM EDT 07/06/2024 1:05 PM EDT Narrative [facility] - 07/06/2024 3:26 PM EDT Urine us Pedro Proctor MD LAB MICROBIOLOGY - GENERAL ORDER WES Final Result Performing Organization Address [facility] de Phone Number [facility] [address] [place] [phone] * Hepatitis B surface antigen, EIA (07/06/2024 11:33 AM EDT) Hepatitis B Surface Ag Negative Negative [facility] Blood Venous blood specimen / Unknown 07/06/2024 11:33 AM EDT 07/06/2024 1:27 PM EDT us Pedro Proctor MD LAB BLOOD ORDERABLES Final Resul t Performing Organization Address [facility] Phone Number [facility] [address] [place] [phone] * RPR (Monitor) with Reflex to??Titer (07/06/2024 11:33 AM EDT) Pathologist [facility] RPR (Monitor) w/Refl Titer NON-REACTI VE NON-REACT GERALDO [facility] Comment:THIS TEST WAS PERFOR MED AT:[facility] [place] [phone] WAHL MD Rapid Plasma Reagin Ab Titer TNP [facility] Blood Venous blood specimen / Unknown 07/06/2024 11:33 AM EDT 07/06/2024 1:20 PM EDT us Pedro Proctor MD LAB BLOOD ORDERABLES Final Resul t Performing Organization Address [facility] de Phone Number [facility] [address] [place] [phone] * HIV-1/2 Antigen and Antibodies, Fourth Generation, with Reflexes (07/06/2024 11:33 AM EDT) Pathologist [facility] HIV AB/AG Nonreactive Nonreactive [facility] Comment:HIV-1 p24 Ag and/or HIV-1/HIV-2 Ab not detected.A test result that is nonreactive does not exclude thepossibility of exposure to or infection with HIV-1 and/orHIV-2. Nonreactive results in this assay for individualswith prior exposure to HIV-1 and/or HIV-2 may be due toantigen and antibody levels that are below the limit ofdetection of this assay.The [employer] HIV Ag/Ab Combo assay result andsupplemental assay results should be interpreted inconjunction with the patient's clinical presentation,history and other laboratory results. If the results areinconsistent with clinical evidence, additional testing issuggested to confirm the result. Blood Venous blood specimen / Unknown 07/06/2024 11:33 AM EDT 07/06/2024 1:27 PM EDT us Pedro Proctor MD LAB BLOOD ORDERABLES Final Resul t Performing Organization Address [facility] de Phone Number [facility] [address] [place] [phone] * Hepatitis B Surface Antibody, Qualitative (07/06/2024 11:33 AM EDT) [facility] ~Hepatitis B Surface Antibody GRAYZONE Nonreactive [facility] Comment:GRAYZONE: 8.00 mIU/m L TO 11.99 mIU/mLTHE IMMUNE STATUS OF THE INDIVIDUAL SHOULD BE FURTHERASSESSED BY CONSIDERING OTHER FACTORS, SUCH CLINICALSTATUS, FOLLOW-UP TESTING, ASSOCIATED RISK FACTORS, AND THEUSE OF ADDITIONAL DIAGNOSTIC INFORMATION. Blood Venous blood specimen / Unknown 07/06/2024 11:33 AM EDT 07/06/2024 1:27 PM EDT us Pedro Proctor MD LAB BLOOD ORDERABLES Final Resul t Performing Organization Address [facility] Co de Phone Number [facility] [address] [place] [phone] * (ABNORMAL) Comprehensive Metabolic Panel (07/06/2024 11:33 AM EDT) Sodium 138 135 - 145 mmol/L [facility] Potassium 4.1 3.3 - 5.1 mmol/L [facility] Chloride 109(H) 96 - 108 mmol/L [facility] Carbon Dioxide 25 22 - 29 mmol/L [facility] Anion Gap 8(L) 12 - 20 [facility] Urea Nitrogen (BUN) 13 9 - 16 mg/dL [facility] Creatinine, Serum 0.74 0.5 - 1.4 mg/dL [facility] Estimated Glomerular Filt Rate >60 [facility] Comment:Chronic Kidney Disea se: Estimated GFR < 60 mL/min/1.35h9Klvtyi Kidney Disease: Estimated GFR < 15 mL/min/1.73m2 Glucose 102 60 - 115 mg/dL [facility] Calcium 9.4 8.4 - 10.2 mg/dL [facility] Bilirubin, Total 0.4 0.0 - 1.0 mg/dL [facility] Aspartate Amino Transferase 30 5 - 37 U/L [facility] Alanine Aminotransferase 30 0 - 40 U/L [facility] Total Protein 7.0 6.5 - 8.0 g/dL [facility] Albumin Level 4.2 3.5 - 5.0 g/dL [facility] Alkaline Phosphatase 67 39 - 117 U/L [facility] Blood Venous blood specimen / Unknown 07/06/2024 11:33 AM EDT 07/06/2024 1:20 PM EDT us Pedro Name LAB BLOOD ORDERABLES Final Resul t [facility] [address] [place], [place] [phone] from Last 3 Months Insurance [facility] C3 Care Teams Blow Molding Machine Tender Relationship Specialty Start Date End Date Name, MD Pedro [address] [place] [phone] PCP - General Internal Medicine 07/05/24
[2024-09-03] MEDS: Naloxone HCl Nasal TAKE HOME 4 MG SPRAY 8 MG NOSTRILALT (14:16)
--- NOTE | 2024-09-03 14:22 | PC.NURSE ---
pt was seen by provider and plan is for discharge home with nasal narcan
[2024-09-03 14:23] VITALS: BP 100/61; PULSE 75; RESP 16; TEMP 36.6; O2SAT 97
== END 2024-09-03 14:25 | disposition home or self-care (01) ==
PROVIDERS: Emergency Provider Emergency Medicine
DX: T50.901A Poisoning by unspecified drugs, medicaments and biological substances, accidental (unintentional), initial encounter (principal); R55 Syncope and collapse; Y92.9 Unspecified place or not applicable
CPT/HCPCS: 99282; 99283

== ENCOUNTER 2024-09-28 15:46 | Emergency (ER) | payer MEDICAID, SELFPAY ==
[2024-09-28 15:50] VITALS: BP 115/72; PULSE 71; RESP 10; TEMP 36.8; O2SAT 91; BMI 24.3
--- NOTE | 2024-09-28 16:05 | ED_ITS ---
HPI - General Adult General Chief complaint: Overdose Stated complaint: ?OD Time Seen by Provider: 09/28/24 16:03 Source: patient and family (sister) Mode of arrival: ambulatory Limitations: no limitations History of Present Illness ED Provider: Annika Narayan PA-C HPI narrative: Patient is a 58 year old assigned male at with a history of heroin use presenting to the emergency department today after an overdose. Patient states that he used 1 bag of heroin today and overdosed, requiring his family to bring him here and for him to receive Narcan. Patient states that he used to be in a program for his drug use but because of his new job, he can no longer make it to the program. Patient states that he is willing to take Narcan with him and a resource booklet but he does not want to speak with anyone about starting or being placed in detox / rehabilitation today. Patient declines to begin methadone or suboxone. Patient denies any dizziness, lightheadedness, abdominal pain, nausea, vomiting, fever, chills, blurry vision, double vision, loss of vision, chest pain, difficulty breathing, shortness of breath, back pain, night sweats, pain with urination, increased urinary frequency, increased urinary urgency, blood in his urine or stool, syncope or a near syncopal episode, recent trauma or falls, bowel incontinence, bladder incontinence, or any other complaints at this time. Relieving factors: none Exacerbating factors: none Associated symptoms: denies other symptoms Treatments prior to arrival: other (Narcan) Related Data Allergies Allergy/AdvReac Type Severity Reaction Status Date / Time No Known Allergies Allergy Verified 09/28/24 15:53 Review of Systems Constitutional: Constitutional: Reports no additional constitutional complaints, Denies chills, Denies fever(s) and Denies night sweats Eyes: Eyes: Reports no additional eye complaints, Denies blurry vision, Denies change in vision, Denies diplopia, Denies eye discharge, Denies loss of vision and Denies eye pain ENT: Denies dizziness Cardiovascular: Cardiovascular: Reports no additional cardiovascular complaints, Denies chest pain, Denies lightheadedness, Denies Loss of Consciousness and Denies dyspnea Respiratory: Respiratory: Reports no additional respiratory complaints and Denies dyspnea Gastrointestinal: Gastrointestinal: Reports no additional gastrointestinal complaints, Denies abdominal pain, Denies melena, Denies hematochezia, Denies change in bowel habits and Denies change in stool character Genitourinary: Genitourinary: Reports no additional male genitourinary complaints, Denies hematuria, Denies oliguria, Denies difficulty urinating, Denies dysuria, Denies urinary frequency, Denies urinary hesitancy, Denies urinary incontinence and Denies urinary urgency Musculoskeletal: Musculoskeletal: Reports no additional musculoskeletal complaints, Denies numbness and Denies tingling Neurologic: Denies dizziness, Denies loss of vision, Denies numbness and Denies tingling Psychiatric: Psychiatric: Reports no additional psychiatric complaints Endocrine: Endocrine: Reports no additional endocrine complaints Hematologic/Lymphatic: Hematologic/Lymphatic: Reports no additional hematolo gic/lymphatic complaints Allergic/Immunologic: Allergic/Immunologic: Reports no additional allergic/immunologic complaints PMFSH Past Medical History Attestation statement: The following information was validated with the patient. (all information validated with the patient's sister) Source: old records reviewed, obtained from family (patient's sister provided additional history and confirmed the history provided by the patient. ) and nursing notes reviewed Medical History Overdose Polysubstance abuse Social History Social History Substance Use Type: Opiates Advance Directives: No Advance Directives Information Provided: No Do you have a plan to hurt others: No Plan Physical Exam ED Vital Signs: Vital Signs - 24 hr 09/28/24 15:50 09/28/24 16:06 09/28/24 16:16 Temperature 98.3 F 98.0 F Pulse Rate 71 70 65 Respiratory Rate 10 L 10 L 10 L Blood Pressure 115/72 120/76 117/76 Pulse Oximetry 91 L 95 96 Oxygen Delivery Method Room Air Room Air Room Air 09/28/24 16:22 Temperature 98.0 F Pulse Rate 65 Respiratory Rate 10 L Blood Pressure 117/76 Pulse Oximetry 96 Oxygen Delivery Method Room Air BMI result Body Mass Index 24.3 Const General: cooperative, no acute distress, alert and awake Nutritional Appearance: well nourished Orientation/consciousness: patient oriented x3 HENMT Head: Yes normal to inspection and Yes atraumatic Ears: hearing grossly normal bilaterally and external ears normal General nose exam: Normal external nose present, no nasal discharge noted and no epistaxis Face and sinus: Yes normal facial exam, No abrasion and No laceration Mouth: Normal oral and palatal mucosa present, no drooling and no muffled voice Eyes General: appearance normal, both eyes and all related structures Periorbital: periorbital findings normal Eyelids: Yes eyelids normal Conjunctivae: conjunctivae normal Pupils: Equal, round and reactive pupils present EOM: EOMs intact bilaterally Neck Neck: Yes normal visual inspection, Yes full ROM and Yes no lymphadenopathy Resp Effort & Inspection: normal respiratory effort and able to speak in complete sentences Neuro General: patient oriented x3, moves all extremities and CN's II-XI intact bilaterally Cranial nerves: Yes Equal, round and reactive pupils present Cognition (Neuro): normal cognition Extrem General: Yes normal to inspection, Yes full ROM and Yes capillary refill normal Psych Appearance: grossly normal Mental Status: mental status grossly normal Affect: normal affect Attitude: cooperative Thought process: Normal thought process present Thought content: Normal thought content present Insight: Good insight present (Psych) Medications Administered Discontinued Medications Generic Name Dose Route Start Last Admin Trade Name Millicent PRN Reason Stop Dose Admin Naloxone HCl 8 mg 09/28/24 16:10 09/28/24 16:18 Naloxone Hcl Nasal Take Home 4 Mg Levering NOSTRILALT 09/28/24 16:11 8 mg ONCE ONE Administration Medical Decision Making Medical Decision Making [facility] Narrative: Patient is a 58 year old assigned male at with a history of heroin use presenting to the emergency department today after an overdose. Patient's physical exam was unremarkable. I explained my physical exam findings to the pa tient and the patient's sister. I answered all questions asked by the patient and the patient's sister. Patient declined meeting with recovery / CARE team, being started on methadone or suboxone, and any help with detox / rehabilitation. Patient did accept take home narcan and a resource booklet. I stressed the importance of the patient taking his medication as directed (either prescribed or as the over the counter packaging recommends). I stressed the importance of the patient following up with his primary care provider. I stressed the importance of the patient returning to the emergency department immediately if he were to develop any dizziness, shortness of breath, difficulty breathing, chest pain, blurry vision, loss of vision, nausea, vomiting, abdominal pain, fever, chills, back pain, or any other complaints. Patient [and the patient's] verbalized agreement and understanding with this treatment plan and discharge. Differential Diagnosis Differential Diagnoses: The differential diagnosis associated with the presentation includes Accidental heroin overdose Polysubstance abuse Substance use Opiate use Admission/Observation Consideration of admission/observation: Escalation of care including admission/observation considered Patient would have been admitted to the hospital had his clinical presentation warranted hospital admission. Independent Historian Clinical information obtained from an independent historian. History obtained from or confirmed by: Other (patient's sister provided additional history and confirmed the history provided by the patient.) Discharge Plan Discharge Clinical Impression: Opiate overdose Patient Disposition: Home, Self-Care Instructions: Opioid Safety (ED), Opioid Use Disorder (ED) Additional Instructions: You were seen in our Emergency Department today for treatment of opiate use disorder. You also may have been given naloxone (narcan) to take home with you. This medication is used to potentially treat opiate overdose. If you decide you want to stop or cut down on how much you?re using, you can call or walk into our outpatient Addiction Treatment office: [facility] (M-F 9am-5p) [address] [place] [address], [address] You were provided a list of several treatment providers in the area.? If you experience any worsening symptoms you cannot control please return to the ED or call 911. Please follow up at your next appointment. Things to look out for are fevers, chest pain, shortness of breath, severe pain, dizziness, fainting or any other concerns. Follow up with your primary care provider. Return to the emergency department immediately if your symptoms worsen or if you develop any dizziness, shortness of breath, difficulty breathing, chest pain, blurry vision, loss of vision, nausea, vomiting, abdominal pain, fever, chills, back pain, or any other complaints. Sulema?seguimiento?con haddad m?dico de atenci?n primaria. Acuda inmediatamente al servicio de urgencias si jose s?ntomas empeoran o si presenta falta de aliento, dificultad para respirar, dolor tor?cico, mareos, aturdimiento, dolor de espalda, dolor abdominal, fiebre, escalofr?os o cualquier otro s?ntoma. Please see the information below about our Patient Portal. If you are not yet enrolled in the [facility] Patient Portal, you will receive an enrollment email invitation following your visit to any [facility] care setting. You may also self-enroll in the Patient Portal by visiting our website: [email or web address] The following information is required to access the Patient Portal: - Your [facility] Medical Record Number - Your personal home email address (must match what is in your electronic medical record, Registration staff can assist with this) - Name - Date of Capabilities of the Patient Portal: - Message some providers - View upcoming appointments - Access your health summary, medical history, and visit history - View current conditions and allergies - View procedure and lab results - View your medications, including guidelines, side effects, and precautions - Complete pre-appointment questionnaires requested by your provider - Ready summary reports of your office visits and procedures To access the Patient Portal Mobile Meliza, follow these directions: - Search [employer] in the [employer] Store or [employer] Store - Download the Meliza - Search for [facility] - Enter your login/password Portal del paciente Si usted no esta inscrito en el portal de pacientes de [facility], recibira dianne invitacion de inscripcion despues de haddad visita al [facility] o al [facility] via correo electronico. Tambien puede inscribirse voluntariamente en el portal de pacientes visitando nuestra pagina web: [email or web address] La siguiente informacion sera requerida para acceder al portal: - Haddad arlen de historia medica de [facility] - Haddad direccion de correo electronico personal - Nombre - Fecha de nacimiento Capacidades: Las siguientes capacidades estan disponibles en el portal de pacientes: - Enviar mensajes a algunos doctores - Verificar proximas citas - Acceso a haddad historial de amador, registro medico e historial de visitas - Pascale las condiciones actuales y alergias pascale procedimientos y resultados del laboratorio - Pascale jose medicamentos, incluyendo las pautas - Efectos secundarios y precauciones - Completar o llenar formularios / cuestionarios de - Citas solicitadas por haddad doctor - Leer los resumenes de reportes medicos de jose visitas y procedimientos [place] acceder a la aplicacion movil: - [employer] [facility] en la Meliza Store o [employer] Store - Descargue la aplicacion - [facility] - Ingrese haddad nombre de usuario / Contrasena Referrals: Pedro Proctor MD [Primary Care Provider, Internal Medicine] Interventions: ED Discharge Assessment Last Done: 09/28/24 16:22 Discharge Date/Time: 09/28/24 16:24 Print Language: Greenlandic
[2024-09-28 16:06] VITALS: BP 120/76; PULSE 70; RESP 10; TEMP 36.7; O2SAT 95
--- OUTSIDE RECORDS SUMMARY | 2024-09-28 16:14 | XMS_ITS | Clinical Summary ---
Author Organization [employer] Address [address] [facility] [facility] [address] [place] [address] Care Team Providers Care Stacker Name Role Phone Name, Pedro NORRIS Primary Care Provider [phone] Allergies No known active allergies Medications * [...] Type Department Care Team Description 08/27/2024 Telephone [facility] [address] [place] [phone] Beverly Masters MA october recalls 07/28/2024 9:00 AM EDT Office Visit [facility] [address] [place] [phone] Ruel Esquivel MD Cocaine use disorder (CMS/HCC) (Primary Dx) 07/28/2024 Travel 07/27/2024 Patient Outreach [facility] [address] [place] [address] José Miguel Jules Recovery Supports 07/26/2024 Patient Outreach [facility] [address] [place] [address] [phone] José Miguel Jules Recovery Supports 07/22/2024 Patient Outreach [facility] [address] [place] [address] José Miguel Jules Recovery Supports 07/20/2024 Patient Outreach [facility] [address] [place] [address] Umair Nelson Recovery Supports 07/19/2024 Patient Outreach [facility] [address] [place] [address] Umair Nelson Recovery Supports 07/16/2024 Telephone [facility] [address] [place] [address] Pedro Proctor MD Results 07/08/2024 Telephone [facility] [address] [place] [phone] Jun GilesssFABIO encarnacion 07/05/2024 2:00 PM EDT Office Visit [address] [address] Pedro Proctor MD Polysubstance abuse (CMS/[facility]) (Primary Dx); Tobacco use disorder; Depression with anxiety; Screening examination for STI; Screening for colon cancer; Blurred vision, bilateral; Housing instability 07/05/2024 Patient Outreach [address] [address] Pedro Proctor MD Care Coordination (CHW outreach for SDOH housing search-referral completed ) 07/05/2024 Travel 07/01/[address] [address] Ayush Hood MA chartprep from Last 3 Months Immunizations Immunization Administration [...] with others, in a hotel, in a longterm, living outside on the street, on a [...] 69 07/05/2024 2:22 PM EDT Temperature 37.4 C (99.4 F) 07/05/2024 2:22 PM EDT Respiratory Rate 18 07/05/2024 2:22 PM EDT [...] Description 10/25/2024 1:00 PM EDT Office Visit [facility] [address] [place], [place] [phone] Simonnaveen Polly, OD [address] [place] [address] 11/30/2024 1:00 PM EDT Office Visit [facility] [address] [place], [place] [phone] Name, MD Pedro [address] [place], [place] [phone] Health Maintenance Due Date Last Done Comments [...] Vaccines (1 of 2) 2014 COVID-19 Vaccine (1 - season) 2023 Influenza Vaccine (#1) 2024 9, 02/04/2017, 03/04/2016, Additional history exists Depression Monitoring [...] Free T4 1.73 0.32 - 4.0 uIU/mL [facility] Blood Venous blood specimen / Unknown 07/06/2024 11:33 AM EDT 07/06/2024 1:20 PM EDT us Pedro Proctor MD LAB BLOOD ORDERABLES Final Resul t [facility] [address] [place] [phone] * Hepatitis C Viral RNA, Quantitative, Real-Time PCR (07/06/2024 11:33 AM EDT) Hepatitis C Viral Load <15 NOT DETECTED NOT DETECTED IU/mL [facility] HCV Log PCR <1.18 NOT DETECTED NOT DETECTED Log IU/mL [facility] Comment:For additional infor matnkechi, please refer tohttp://education.Tokyo Otaku Mode/faq/DDB99g1(This link is being provided for informational/educational purposes only.)THIS TEST WAS PERFORMED AT:[id number] [place] [phone] WAHL MD Blood Venous blood specimen / Unknown 07/06/2024 11:33 AM EDT 07/06/2024 1:20 PM EDT us Pedro Name LAB BLOOD ORDERABLES Final Resul t [facility] [address] [place] [phone] * (ABNORMAL) CBC auto differential (07/06/2024 11:33 AM EDT) White Blood Count 5.8 4.8 - 10.8 X10*3/uL [facility] Red Blood Count 4.60 4.60 - 5.80 X10*6/uL [facility] Hemoglobin 14.2 14.0 - 18.0 g/dl [facility] Hematocrit 40.5(L) 42.0 - 52.0 % [facility] Mean Corpuscular Volume 88.0 80.0 - 98.0 fL [facility] Mean Corpuscular Hemoglobin 30.9 27.0 - 33.0 pg [facility] Mean Corpuscular HGB Conc 35.1 31.0 - 36.0 g/dl [facility] Red Cell Distribution Width 12.1 11.0 - 16.0 % [facility] Platelet Count 181 160 - 400 X10*3/uL [facility] Mean Platelet Volume 9.2(L) 9.4 - 12.4 fL [facility] Neutrophils Percent Auto 65.2 45 - 73 % [facility] Imm Gran Pct Auto 0.3 0.0 - 0.4 % [facility] Lymphocytes Percent Auto 21.0 20 - 40 % [facility] Monocytes Percent Auto 7.5 2 - 11 % [facility] Eosinophils Percent Auto 5.7(H) 0 - 4 % [facility] Basophils Percent Auto 0.3 0 - 2 % [facility] NRBC Pct Auto 0.0 0.0 - 0.2 /100WBC [facility] Neutrophils Absolute Auto 3.8 2.0 - 8.3 x10*3/uL [facility] Imm Gran Abs Auto 0.02 0.00 - 0.03 X10*3/uL [facility] Lymphocytes Absolute Auto 1.2 1.2 - 4.9 X10*3/uL [facility] Monocytes Absolute Auto 0.4 0.1 - 1.2 X10*3/uL [facility] Eosinophils Absolute Auto 0.3 0.0 - 0.4 X10*3/uL [facility] Basophils Absolute Auto 0.0 0.0 - 0.2 X10*3/uL [facility] NRBC Abs Auto 0.000 0.0 - 0.012 X10*3/uL [facility] Blood Venous blood specimen / Unknown 07/06/2024 11:33 AM EDT 07/06/2024 1:20 PM EDT us Pedro Proctor MD LAB BLOOD ORDERABLES Final Resul t Performing Organization Address [facility] Co de Phone Number [facility] [address] [place] [phone] * Hepatitis A Antibody, Total (07/06/2024 11:33 AM EDT) [facility] Hepatitis A Antibody IgG REACTIVE Nonreactive [facility] Comment:The presence of IgG anti-HAV implies past HAV infection(recent or distant) or vaccination against HAV. Blood Venous blood specimen / Unknown 07/06/2024 11:33 AM EDT 07/06/2024 1:20 PM EDT us Pedro Proctor MD LAB BLOOD ORDERABLES Final Resul t Performing Organization Address [facility] Co de Phone Number [facility] [address] [place] [phone] * Chlamydia/N. Gonorrhoeae RNA, TMA, Urogenitial (07/06/2024 11:33 AM EDT) [facility] CT PCR NOT DETECTED Not Detect. [facility] Comment:A not detected test result does [...] psychologicalconsequences. NG PCR NOT DETECTED Not Detect. [facility] Comment:A not detected test result does [...] AM EDT 07/06/2024 1:05 PM EDT Narrative [facility] - 07/06/2024 3:26 PM EDT Urine us Pedro Proctor MD LAB MICROBIOLOGY - GENERAL ORDER WES Final Result [facility] [address] [place] [phone] * Hepatitis B surface antigen, EIA (07/06/2024 11:33 AM EDT) Hepatitis B Surface Ag Negative Negative [facility] Blood Venous blood specimen / Unknown 07/06/2024 11:33 AM EDT 07/06/2024 1:27 PM EDT us Pedro Proctor MD LAB BLOOD ORDERABLES Final Resul t Performing Organization Address [facility] Co de Phone Number [facility] [address] [place] [phone] [phone] * RPR (Monitor) with Reflex to??Titer (07/06/2024 11:33 AM EDT) RPR (Monitor) w/Refl Titer NON-REACTI VE NON-REACT GERALDO [facility] Comment:THIS TEST WAS PERFOR MED AT:[id number] [place] [phone] WAHL MD Rapid Plasma Reagin Ab Titer TNP [facility] Blood Venous blood specimen / Unknown 07/06/2024 11:33 AM EDT 07/06/2024 1:20 PM EDT us Pedro Proctor MD LAB BLOOD ORDERABLES Final Resul t Performing Organization Address [facility] de Phone Number [facility] [address] [place] [phone] [phone] * HIV-1/2 Antigen and Antibodies, Fourth Generation, with Reflexes (07/06/2024 11:33 AM EDT) HIV AB/AG Nonreactive Nonreactive [facility] Comment:HIV-1 p24 Ag and/or HIV-1/HIV-2 Ab not detected.A test result that is nonreactive does not exclude thepossibility of exposure to or infection with HIV-1 and/orHIV-2. Nonreactive results in this assay for individualswith prior exposure to HIV-1 and/or HIV-2 may be due toantigen and antibody levels that are below the limit ofdetection of this assay.The [employer] HIV Ag/Ab Combo assay result andsupplemental assay results should be interpreted inconjunction with the patient's clinical presentation,history and other laboratory results. If the results areinconsistent with clinical evidence, additional testing issuggested to confirm the result. Blood Venous blood specimen / Unknown 07/06/2024 11:33 AM EDT 07/06/2024 1:27 PM EDT us Pedro Proctor MD LAB BLOOD ORDERABLES Final Resul t Performing Organization Address [facility] Number [facility] [address] [place] [phone] * Hepatitis B Surface Antibody, Qualitative (07/06/2024 11:33 AM EDT) Pathologist [facility] ~Hepatitis B Surface Antibody GRAYZONE Nonreactive [facility] Comment:GRAYZONE: 8.00 mIU/m L TO 11.99 mIU/mLTHE IMMUNE STATUS OF THE INDIVIDUAL SHOULD BE FURTHERASSESSED BY CONSIDERING OTHER FACTORS, SUCH CLINICALSTATUS, FOLLOW-UP TESTING, ASSOCIATED RISK FACTORS, AND THEUSE OF ADDITIONAL DIAGNOSTIC INFORMATION. Blood Venous blood specimen / Unknown 07/06/2024 11:33 AM EDT 07/06/2024 1:27 PM EDT us Pedro Proctor MD LAB BLOOD ORDERABLES Final Resul t Performing Organization Address [facility]anner Number [facility] [address] [place] [phone] * (ABNORMAL) Comprehensive Metabolic Panel (07/06/2024 11:33 AM EDT) Pathologist [facility] Sodium 138 135 - 145 mmol/L [facility] Potassium 4.1 3.3 - 5.1 mmol/L [facility] Chloride 109(H) 96 - 108 mmol/L [facility] Carbon Dioxide 25 22 - 29 mmol/L [facility] Anion Gap 8(L) 12 - 20 [facility] Urea Nitrogen (BUN) 13 9 - 16 mg/dL [facility] Creatinine, Serum 0.74 0.5 - 1.4 mg/dL [facility] Estimated Glomerular Filt Rate >60 [facility] Comment:Chronic Kidney Disea se: Estimated GFR < 60 mL/min/1.67o9Eafwuw Kidney Disease: Estimated GFR < 15 mL/min/1.73m2 Glucose 102 60 - 115 mg/dL [facility] Calcium 9.4 8.4 - 10.2 mg/dL [facility] Bilirubin, Total 0.4 0.0 - 1.0 mg/dL [facility] Aspartate Amino Transferase 30 5 - 37 U/L [facility] Alanine Aminotransferase 30 0 - 40 U/L [facility] Total Protein 7.0 6.5 - 8.0 g/dL [facility] Albumin Level 4.2 3.5 - 5.0 g/dL [facility] Alkaline Phosphatase 67 39 - 117 U/L [facility] Blood Venous blood specimen / Unknown 07/06/2024 11:33 AM EDT 07/06/2024 1:20 PM EDT us Pedro Proctor MD LAB BLOOD ORDERABLES Final Resul t [facility] [address] [place] [phone] from Last 3 Months Insurance C3 Care Teams Stacker Relationship Specialty Start Date End Date Name, MD Pedro [address] [place] [phone] PCP - General Internal Medicine 07/05/24
[2024-09-28 16:16] VITALS: BP 117/76; PULSE 65; RESP 10; O2SAT 96
[2024-09-28] MEDS: Naloxone HCl Nasal TAKE HOME 4 MG SPRAY 8 MG NOSTRILALT (16:18)
[2024-09-28 16:22] VITALS: BP 117/76; PULSE 65; RESP 10; TEMP 36.7; O2SAT 96
== END 2024-09-28 16:24 | disposition home or self-care (01) ==
PROVIDERS: Emergency Provider Emergency Medicine Emergency Medical Services; PCP Internal Medicine Geriatric Medicine
DX: T40.1X1A Poisoning by heroin, accidental (unintentional), initial encounter (principal); F19.10 Other psychoactive substance abuse, uncomplicated; Y92.009 Unspecified place in unspecified non-institutional (private) residence as the place of occurrence of the external cause
CPT/HCPCS: 99284

== ENCOUNTER 2024-11-01 15:16 | Emergency (ER) | payer MEDICAID, SELFPAY ==
--- NOTE | 2024-11-01 15:37 | ED_ITS ---
HPI - General Adult General Chief complaint: Overdose Stated complaint: OPIATE OD,AROUSES TO PAIN,NO NARCAN GIVEN PER EMS Time Seen by Provider: 11/01/24 15:32 History of Present Illness ED Provider: Otto JADE narrative: The patient is a 59-year-old who has a history of opioid use disorder. He has been seen in the emergency room previously for drug overdoses. He was in the emergency room for using nasal heroin in the past. He has been here in May of 2024 and most recently in August, 2 months ago. Today he was apparently found passed out, apparently because of an opioid overdose. He was given 4 mg of naloxone by paramedics and brought to the hospital. There was no report of any injury or trauma. The patient here is quite somnolent and unable to give any history. Related Data Allergies Allergy/AdvReac Type Severity Reaction Status Date / Time No Known Allergies Allergy Verified 11/01/24 15:43 Review of Systems 2 Review of Systems: Yes all other systems are reviewed and are negative [facility] Past Medical History Medical History Overdose Polysubstance abuse Social History Social History Substance Use Type: Opiates Advance Directives: No Advance Directives Information Provided: Yes Physical Exam ED Vital Signs: Vital Signs - 24 hr 11/01/24 15:39 Pulse Rate 78 Respiratory Rate 12 Blood Pressure 127/85 Pulse Oximetry 98 Oxygen Delivery Method Nasal Cannula BMI result Body Mass Index 18.8 Const Other: The patient is a slim, athletic looking 59-year-old. He looks remarkably well for a 59-year-old with a substance use problem. He was minimally responsive to noxious stimuli. He was breathing spontaneously. HENMT Other: No signs of trauma to the face. No raccoon eyes. No crockett sign. Airway is clear. Nasal passages are clear. Eyes Other: The patient has pinpoint pupils. Conjunctivae are clear l Neck Neck: Yes normal visual inspection, Yes full ROM and Yes no lymphadenopathy Resp Effort & Inspection: normal respiratory effort Auscultation: clear to auscultation bilaterally Cardio Rate: regular rate Rhythm: regular rhythm Heart sounds: S1 normal heart sound present and S2 normal heart sound present Skin Other: The skin is dry and unremarkable. He does not seem to have any track vazquez on his forearms. He has quite healthy looking skin. Neuro Other: The patient is somnolent. He has pinpoint pupils. Face is symmetrical. He is breathing spontaneously. Tone is symmetrical. He seems to be under the influence of an opioid intoxication but otherwise does not show any obvious signs of a focal neurological deficit. Extrem Other: No peripheral edema Medications Administered Discontinued Medications Generic Name Dose Route Start Last Admin Trade Name Austinq PRN Reason Stop Dose Admin Sodium Chloride 1,000 mls @ 999 mls/hr 11/01/24 19:00 11/01/24 20:11 Ns IV 11/01/24 20:00 Infused .Q1H1M MAURIZIO Infusion Naloxone HCl 8 mg 11/01/24 19:44 11/01/24 20:12 Naloxone Hcl Nasal Take Home 4 Mg [place] NOSTRILALT 11/01/24 19:45 8 mg ONCE ONE Administration Medical Decision Making Medical Decision Making [facility] Narrative: The patient is a 59-year-old male with a history of opioid use disorder who was brought to the hospital because of concern about a possible opioid overdose. He has been given intranasal naloxone by paramedics. He arrived somnolent but seemed to be sufficiently breathing to maintain his oxygenation (with supplemental oxygen) and protect his airway. The patient was observed for a few hours. He ultimately awoke and said that he wanted to be discharged. He seemed sufficiently steady on his feet. I felt he was safe for discharge and did not feel that I had grounds to hold him against his will. He denied any suicidal thoughts or plans. He was given a naloxone kit at discharge and advised to follow up with [facility] as well as his PCP at the [facility]. Lab Data 11/01/24 16:15 11/01/24 16:15 Labs: Lab Results 11/01/24 Range/Units 16:15 WBC 4.4 L (4.8-10.8) X10*3/uL RBC 4.22 L (4.60-5.80) X10*6/uL Hgb 13.1 L (14.0-18.0) g/dl Hct 37.4 L (42.0-52.0) % MCV 88.6 (80.0-98.0) fL MCH 31.0 (27.0-33.0) pg MCHC 35.0 (31.0-36.0) g/dl RDW 12.0 (11.0-16.0) % Plt Count 184 (160-400) X10*3/uL MPV 8.8 L (9.4-12.4) fL Immature Gran % (Auto) 0.2 (0.0-0.4) % Neut % (Auto) 73.8 H (45-73) % Lymph % (Auto) 11.0 L (20-40) % Cla[place]orne % (Auto) 6.6 (2-11) % Eos % (Auto) 8.2 H (0-4) % Baso % (Auto) 0.2 (0-2) % Lymph # (Auto) 0.5 L (1.2-4.9) X10*3/uL [place] # (Auto) 0.3 (0.1-1.2) X10*3/uL Eos # (Auto) 0.4 (0.0-0.4) X10*3/uL Baso # (Auto) 0.0 (0.0-0.2) X10*3/uL Abs Immat Gran (auto) 0.01 (0.00-0.03) X10*3/uL Absolute Neuts (auto) 3.2 (2.0-8.3) x10*3/uL Absolute Nucleated RBC 0.000 (0.0-0.012) X10*3/uL Nucleated RBC % (auto) 0.0 (0.0-0.2) /100WBC Sodium 140 (135-145) mmol/L Potassium 4.5 (3.3-5.1) mmol/L Chloride 109 H (96-108) mmol/L Carbon Dioxide 26 (22-29) mmol/L Anion Gap 10 L (12-20) BUN 17 H (9-16) mg/dL Creatinine 0.93 (0.5-1.4) mg/dL Estim Creat Clear Calc 61.2 Estimated GFR > 60 Random Glucose 136 H (60-115) mg/dL Calcium 8.7 D (8.4-10.2) mg/dL Total Bilirubin 0.3 (0.0-1.0) mg/dL Direct Bilirubin 0.1 (0.0-0.5) mg/dL AST 30 (5-37) U/L ALT 24 (0-40) U/L Alkaline Phosphatase 57 (39-117) U/L Total Protein 6.7 (6.5-8.0) g/dL Albumin 4.1 (3.5-5.0) g/dL Ethyl Alcohol < 10 mg/dL Discharge Plan Discharge Clinical Impression: Opioid overdose Patient Disposition: Home, Self-Care Additional Instructions: Please be very careful with any drugs you might use in the future. Please use the naloxone provided as needed. Keep it with you at all times. Please follow up soon with your regular doctor. Return to the emergency room if worse. Opiate use disorder You were seen in our Emergency Department today for treatment of opiate use disorder. You may have been dosed with medication for opiate use disorder (MOUD) in the form of suboxone or methadone. You may experience feeling some withdrawal symptoms and this is normal. The? dose in the Emergency Department is a starting dose and meant to be titrated up once you follow up with a clinic. Please do not feel discouraged, it is a process. The nurse has reviewed with you where to follow up and what information to bring with you, to continue treatment. You also may have been given naloxone (narcan) to take home with you. This medication is used to potentially treat opiate overdose. If you decide you want to stop or cut down on how much you?re using, you can call or walk into our outpatient Addiction Treatment office: [facility] (M-F 9am-5p) [address], [address] [phone] You may have been provided with safer injection?items, please take time to take care of YOU and your health. Use new supplies whenever possible to lessen the chances of infections and other illnesses.? ?If you need more supplies, please go [facility],? [address] [place], [place] you can call or text to coordinate delivery of safer supplies. You were also provided a list of several treatment providers in the area.? If you experience any worsening symptoms you cannot control please return to the ED or call 911. Please follow up at your next appointment. Things to look out for are fevers, chest pain, shortness of breath, severe pain, dizziness, fainting or any other concerns. Referrals: [facility] [Provider Group] Interventions: ED Discharge Assessment Last Done: 11/01/24 20:23 Discharge Date/Time: 11/01/24 20:20 Print Language: Urdu
[2024-11-01 15:39] VITALS: BP 127/85; BP 135/60; PULSE 104; PULSE 78; RESP 12; O2SAT 95; O2SAT 98; BMI 18.8
--- NOTE | 2024-11-01 15:42 | ECG_ITS ---
Test Reason : OD Blood Pressure : */* mmHG Vent. Rate : 69 BPM Atrial Rate : 69 BPM P-R Int : 144 ms QRS Dur : 98 ms QT Int : 360 ms P-R-T Axes : 77 -76 63 degrees QTcB Int : 385 ms Normal sinus rhythm with sinus arrhythmia Incomplete right bundle branch block Left anterior fascicular block Abnormal ECG When compared with ECG of 04-Jun-2024 00:35, Nonspecific T wave abnormality has replaced inverted T waves in Anterior leads Referred By: Levon Menjivar Electronically Signed By: Gonzalo Stratton
--- NOTE | 2024-11-01 15:58 | MHC.EDTECH ---
[facility]
[2024-11-01 16:18] LABS: MANUAL DIFF FLAG NO
[2024-11-01 16:24] VITALS: RESP 10
[2024-11-01 16:27] LABS: Hematocrit 37.4 % (42.0-52.0); Hemoglobin 13.1 g/dl (14.0-18.0); Imm Gran Abs Auto 0.01 X10*3/uL (0.00-0.03); Imm Gran Pct Auto 0.2 % (0.0-0.4); Lymphocytes Absolute Auto 0.5 X10*3/uL (1.2-4.9); Mean Corpuscular HGB Conc 35.0 g/dl (31.0-36.0); Mean Corpuscular Hemoglobin 31.0 pg (27.0-33.0); Mean Corpuscular Volume 88.6 fL (80.0-98.0); NRBC Abs Auto 0.000 X10*3/uL (0.0-0.012); NRBC Pct Auto 0.0 /100WBC (0.0-0.2); Platelet Count 184 X10*3/uL (160-400); Red Blood Count 4.22 X10*6/uL (4.60-5.80); White Blood Count 4.4 X10*3/uL (4.8-10.8)
--- OUTSIDE RECORDS SUMMARY | 2024-11-01 16:32 | XMS_ITS | Clinical Summary ---
Author Organization [facility] Address [address] [place] [address] Care Team Providers Care [employer]obile Brakes Bonder Name Role Phone Tom Gomez Primary Care Provider [phone] Allergies No known active allergies Medications terbinafine (LamISIL) 1 % cream Apply topically 2 (two) times a day. Apply twice a day for one to four weeks 30 g 1 9 Active naproxen (NAPROSYN) 500 MG tablet Take 1 tablet (500 mg total) by mouth 2 (two) times a day as needed for mild pain (pain). Take with food 20 tablet 0 Active methocarbamol (ROBAXIN) 500 MG tablet Take 2 tablets (1,000 mg total) by mouth 4 times daily (every 6 hours) as needed for muscle spasms. 20 tablet 0 Active Social History Tobacco Use Types Packs/Day Years Used Date Smoking Tobacco: Every Day Smokeless Tobacco: Never Alcohol Use Standard Drinks/Week Comments No 0 (1 standard drink = 0.6 oz pur e alcohol) Sex and Gender Information Value Date Recorded Sex Assigned at Not on file Legal Sex Male 10:03 PM EST Gender Identity Not on file Sexual Orientation Not on file Last Filed Vital Signs Vital Sign Reading Time Taken Comments Blood Pressure 110/72 05/24/2021 8:11 PM EST Pulse 70 05/24/2021 8:11 PM EST Temperature 36.2 C (97.1 F) 05/24/2021 8:11 PM EST Respiratory Rate 16 05/24/2021 8:11 PM EST Oxygen Saturation 96% 05/24/2021 8:11 PM EST Inhaled Oxygen Concentration - - Weight - - Height - - Body Mass Index - - Plan of Treatment Health Maintenance Due Date Last Done Comments Hepatitis C Virus Screening 1964 HIV Screening 1977 DTaP/Tdap/Td Vaccines (1 - Tdap) 10/06/1983 Colonoscopy 2009 Pneumococcal Vaccines 50+ (1 of 1 - PCV) 2014 Zoster (Shingles) Vaccine (1 of 2) 2014 COVID-19 Vaccine (3 - 2023-2 5 season) 2023 10/12/2020, 08/29/2020 Influenza Vaccine 10/22/2024 RSV Vaccine 60 years and older and Patients (1 - 1-dose 75+ series) 10/06/2039 Hepatitis B Vaccines Aged Out No long er eligible based on patient's age to complete this topic Insurance Care Teams Automobile Brakes Bonder Relationship Specialty Start [place] [address] PCP - General Adult Health - ANUPAM/ANDREW/GEOVANY/ROSS 05/10/20
[2024-11-01 16:36] LABS: Alanine Aminotransferase 24 U/L (0-40); Albumin Level 4.1 g/dL (3.5-5.0); Alkaline Phosphatase 57 U/L (39-117); Anion Gap 10 (12-20); Aspartate Amino Transferase 30 U/L (5-37); Blood Urea Nitrogen 17 mg/dL (9-16); Calcium 8.7 mg/dL (8.4-10.2); Carbon Dioxide 26 mmol/L (22-29); Chloride 109 mmol/L (96-108); Creatinine Clr Calc Pharmacy 61.2; Estimated Glomerular Filt Rate > 60; Potassium 4.5 mmol/L (3.3-5.1); Sodium 140 mmol/L (135-145); Total Protein 6.7 g/dL (6.5-8.0)
[2024-11-01 18:47] VITALS: BP 89/54
[2024-11-01 18:53] VITALS: BP 70/55
[2024-11-01 20:00] VITALS: BP 124/70; PULSE 54; RESP 18; TEMP 36.9; O2SAT 96
[2024-11-01] MEDS: Naloxone HCl Nasal TAKE HOME 4 MG SPRAY 8 MG NOSTRILALT (20:12)
[2024-11-01 20:23] VITALS: BP 124/70; PULSE 54; RESP 18; TEMP 36.9; O2SAT 96
== END 2024-11-01 20:20 | disposition home or self-care (01) ==
PROVIDERS: Emergency Provider Emergency Medicine
DX: T40.1X4A Poisoning by heroin, undetermined, initial encounter (principal); F11.10 Opioid abuse, uncomplicated; Y92.89 Other specified places as the place of occurrence of the external cause
CPT/HCPCS: 36415; 80048; 80076; 80307; 85025; 93005; 96360; 99284; 99285

== ENCOUNTER → 2024-11-01 15:42 | Outpatient (BNV) | payer MEDICAID, SELFPAY | PROVIDERS: Emergency Provider Emergency Medicine; Visit Provider Internal Medicine Cardiovascular Disease | DX: I49.9 Cardiac arrhythmia, unspecified (principal); I45.2 Bifascicular block | CPT/HCPCS: 93010 ==